=== PATIENT | male | born 1955 | race Caucasian/White ===

== ENCOUNTER 2022-07-14 19:24 | Emergency (ER) | payer OTHER, SELFPAY ==
[2022-07-14 19:30] VITALS: BP 132/97; PULSE 103; RESP 20; TEMP 36.9; O2SAT 95
--- NOTE | 2022-07-14 19:32 | ED.WOUNDLAC ---
HPI - Wound/Laceration General Chief Complaint: Wound/Laceration Stated Complaint: Right hand middle finger lac History of Present Illness HPI narrative: PATIENT PRESENTS WITH THE LACERATION TO HIS RIGHT RING FINGER. PATIENT STATES HE CUT IT 3 DAYS AGO WHILE PULLING OUT DRYWALL. BLEEDING CONTROLLED PATIENT IS UP-TO-DATE ON HIS TETANUS SHOT NO SIGNS AND SYMPTOMS OF INFECTION. Related Data Allergies Allergy/AdvReac Type Severity Reaction Status Date / Time No Known Allergies Allergy Verified 07/14/22 19:43 Review of Systems Review of Systems: CONSTITUTIONAL: DENIES FEVER, CHILLS, OR SWEATS. EYES: DENIES VISUAL CHANGES, REDNESS, OR DISCHARGE. ENT: DENIES RHINORRHEA, CONGESTION, SORE THROAT, OR OTALGIA. CARDIOVASCULAR: DENIES CHEST PAIN, PALPITATIONS, OR EDEMA. RESPIRATORY: DENIES COUGH OR DYSPNEA. GASTROINTESTINAL: DENIES ABDOMINAL PAIN, NAUSEA, VOMITING, OR DIARRHEA. GENITOURINARY: DENIES DYSURIA OR HEMATURIA. SKIN: DENIES RASH OR ITCHING. MUSCULOSKELETAL: DENIES BACK PAIN, JOINT PAIN, OR MYALGIA. NEUROLOGIC: DENIES HEADACHE, NUMBNESS, OR WEAKNESS. PSYCHIATRIC: DENIES ANXIETY OR DEPRESSION. PMFSH Comments AT TIME OF SIGNATURE, AGREE WITH NURSING PAST MEDICAL, SURGICAL, SOCIAL AND FAMILY HISTORY. THERE IS NO RELEVANT FAMILY HISTORY PERTINENT TO THE PRESENTING COMPLAINT Exam Narrative: GENERAL: WELL-APPEARING, WELL-NOURISHED, AND IN NO ACUTE DISTRESS. HEAD: NORMOCEPHALIC, ATRAUMATIC. EYES: PERRLA AND EOMI. ENT: NARES CLEAR, NO RHINORRHEA OR EPISTAXIS. MUCOUS MEMBRANES MOIST. NECK: SUPPLE. CHEST: CLEAR TO AUSCULTATION. NO RESPIRATORY DISTRESS. HEART: REGULAR RATE AND RHYTHM. NO MURMUR HEARD. NORMAL PERIPHERAL PULSES. ABDOMEN: SOFT, NONTENDER, NONDISTENDED, NORMAL ACTIVE BOWEL SOUNDS. EXTREMITIES: NORMAL RANGE OF MOTION. NO EDEMA. 2 CM OLD LACERATION TO RIGHT RING FINGER HAND EXAM - , no swelling, no erythema, normal digit cascade with flexion of fingers, median nerve, ulnar nerve, radial nerve is intact. Normal sensation of each side of each finger, can perform `ok? sign, `cross over finger test of index and middle fingers? and `thumbs up? sign, normal thumb opposition, no scissoring. good capillary refill and radial pulse. normal flexion and extension of fingers and wrist. normal supination at wrist. Normal forearm and elbow exam. SKIN: WARM, DRY, NO RASH. NEURO: NO FOCAL DEFICITS. ALERT AND ORIENTED X3. DAVID COMA SCALE EYE OPENING: SPONTANEOUS 4 DAVID COMA SCALE MOTOR: OBEYS COMMANDS 6 DAVID COMA SCALE VERBAL: ORIENTED 5 DAVID COMA SCALE TOTAL 15 Course Course Level of Care: Express Care Visit Vital Signs Vital signs: Vital Signs Temperature 36.9 C 07/14/22 19:30 Pulse Rate 103 H 07/14/22 19:30 Respiratory Rate 20 07/14/22 19:30 Blood Pressure 132/97 H 07/14/22 19:30 Pulse Oximetry 95 07/14/22 19:30 Oxygen Delivery Room Air 07/14/22 19:30 Temperature 36.9 C 07/14/22 19:30 Pulse Rate 103 H 07/14/22 19:30 Respiratory Rate 20 07/14/22 19:30 Blood Pressure 132/97 H 07/14/22 19:30 Pulse Oximetry 95 07/14/22 19:30 Oxygen Delivery Room Air 07/14/22 19:30 DISCUSSED WITH PATIENT SINCE LACERATION IS 3 DAYS OLD SUTURES ARE NOT RECOMMENDED DUE TO HIGH RISK OF INFECTION WILL PLACE IN FINGER SPLINT AND USE MUPICIRON OINTMENT PRESCRIBED. MDM - Wound/Laceration Differential Diagnosis Differential diagnosis: Likely laceration, abscess, abrasion, avulsion of skin and other Discharge Plan Discharge Clinical Impression: Laceration, Healing laceration Patient Disposition: Home, Self-Care Condition: Stable Instructions: Laceration Without Closure (ED) Additional Instructions: WEAR SPLINT FOR 5-7 DAYS APPLY BACITRACIN ORDERED MONITOR FOR ANY S/S OF INFECTION FOLLOW UP WITH pcp NEEDED Prescriptions: New mupirocin 2 % ointment 1 applic TOPICAL TID 7 Days Qty: 15 0RF Follow-up/Referrals: Rubio,MD Jonnie [Primary Care Provider] -
== END 2022-07-14 19:49 | disposition home or self-care (01) ==
PROVIDERS: Emergency Provider Nurse Practitioner Family; PCP Internal Medicine Infectious Disease
DX: S61.214A Laceration without foreign body of right ring finger without damage to nail, initial encounter (principal); W45.8XXA Other foreign body or object entering through skin, initial encounter; E78.00 Pure hypercholesterolemia, unspecified; I10 Essential (primary) hypertension; M19.90 Unspecified osteoarthritis, unspecified site
CPT/HCPCS: 29130; 99213; G0463